=== PATIENT | female | born 2000 | race Caucasian/White ===

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

== ENCOUNTER 2022-01-13 11:14 | Outpatient (CLI) | payer OTHER | END 2022-01-13 11:15 | disposition home or self-care (01) | LOC: TBSIIMAG 11:14 | PROVIDERS: ATTEND Neurological Surgery | DX: M54.16 Radiculopathy, lumbar region (principal) | CPT/HCPCS: 72100 ==